=== PATIENT | male | born 1965 | race Hispanic/Latino ===

== ENCOUNTER → 2020-06-30 | Outpatient (CLI) | payer OTHER | END | disposition home or self-care (01) | LOC: RAH 14:11 | PROVIDERS: ATTEND Nurse Practitioner Adult Health | DX: Z13.6 Encounter for screening for cardiovascular disorders (principal) | CPT/HCPCS: 75571 ==

== ENCOUNTER 2020-10-12 09:15 | Inpatient (IN) | payer OTHER ==
[~2020-10-12] VITALS: Ht 175.3 cm; Wt 88.5 kg
[2020-10-12 09:49] LABS: BASOPHILS % (AUTO) 0.2 % (0.0-5.0); EOSINOPHILS % (AUTO) 1.5 % (0.0-8.0); HEMATOCRIT 46.9 % (42-54); LYMPHOCYTES % (AUTO) 10.2 % (21.0-51.0); MEAN CORPUSCULAR HEMOGLOBIN 29.7 pg (27.0-33.0); MEAN CORPUSCULAR HGB CONC 34.3 g/dL (32.0-36.0); MEAN CORPUSCULAR VOLUME 86.4 fL (79-99); MONOCYTES % (AUTO) 10.2 % (3.0-13.0); NEUTROPHILS % (AUTO) 77.7 % (40.0-77.0); PLATELET COUNT (AUTO) 212 K/uL (130-400); RED BLOOD CELL COUNT(AUTO) 5.43 MIL/uL (4.50-6.20); RED CELL DISTRIBUTION WIDTH 11.7 % (11.0-15.5); WHITE BLOOD COUNT (AUTO) 6.6 K/uL (4.8-10.8)
[2020-10-12 10:05] LABS: APPEARANCE,URINE Clear (CLEAR); BILIRUBIN,URINE Negative (NEGATIVE); COLOR,URINE Yellow (YELLOW); GLUCOSE, URINE (UA) Negative (NEGATIVE); KETONES,URINE >=80 mg/dL (NEGATIVE); LEUKOCYTE ESTERASE ,URINE Negative (NEGATIVE); NITRATE,URINE Negative (NEGATIVE); OCCULT BLOOD,URINE Negative (NEGATIVE); PROTEIN,URINE Trace mg/dL (NEGATIVE); UROBILINOGEN,URINE 0.2 mg/dL (0.2-1.0)
[2020-10-12 10:05] LABS: POTASSIUM 3.4 mmol/L (3.5-5.1)
[2020-10-12] MEDS ORDERED: SODIUM CHLORIDE 0.9% 1000ML 1,000 ML IV ONE ×2 (10:06→17:02)
[2020-10-12] MEDS ORDERED: FENTANYL CITRATE PF 50 MCG/1 ML 2ML VIAL ONE (10:06)
[2020-10-12] MEDS ORDERED: ONDANSETRON HCL 4 MG/2 ML VIAL ONE ×2 (10:06→17:02)
[2020-10-12 10:10] LABS: BILIRUBIN,TOTAL 0.5 mg/dL (0.2-1.0); TOTAL PROTEIN, SERUM 8.8 g/dL (6.0-8.3)
[2020-10-12 10:18] LABS: BACTERIA,URINE Few /HPF (None Seen); RBC,URINE 0-1 /HPF (0-1); WBC,URINE 0-1 /HPF (0-1)
[2020-10-12] MEDS ORDERED: KETOROLAC TROMETHAMINE 30MG/ML ONE (11:48)
[2020-10-12] MEDS ORDERED: ONDANSETRON HCL 4 MG/2 ML VIAL IV PRN (15:45)
[2020-10-12] MEDS: SODIUM CHLORIDE 0.9% 1000ML 1,000 ML IV SCH (15:45)
[2020-10-12] MEDS ORDERED: ACETAMINOPHEN 325 MG TAB PO PRN ×2 (15:45)
[2020-10-12] MEDS ORDERED: GADODIAMIDE 10 MMOL/20 ML VIAL IV ONE (16:04)
[2020-10-12] MEDS ORDERED: ZOSYN 3.375GM+NS 50ML 50 ML IV ONE (20:11)
[2020-10-12] MEDS ORDERED: FAMOTIDINE/PF 20 MG/2 ML VIAL IV ONE (20:12)
[2020-10-12] MEDS: FAMOTIDINE/PF 20 MG/2 ML VIAL IV SCH (21:00)
[2020-10-12] MEDS: ZOSYN 3.375GM+NS 50ML 50 ML IV SCH (21:00)
[2020-10-12] MEDS: LABETALOL HCL 5 MG/ML 20ML VIAL IV SCH (23:15)
[2020-10-12] MEDS ORDERED: POTASSIUM CHLORIDE 10MEQ/100ML 100 ML IV PRN (23:15)
[2020-10-12] MEDS ORDERED: LIDOCAINE HCL-MPF 1% 2ML VIAL IV PRN (23:15)
[2020-10-12] MEDS ORDERED: POTASSIUM CHLORIDE 10% ELIXIR 20 MEQ/15 ML UDCUP PO PRN (23:15)
[2020-10-12] MEDS ORDERED: POTASSIUM CHLORIDE 20 MEQ ERTAB PO PRN (23:15)
[2020-10-13] MEDS: SODIUM CHLORIDE 0.9% 1000ML 1,000 ML IV SCH ×3 (01:45→21:58)
[2020-10-13] MEDS ORDERED: ZOSYN 3.375GM+NS 50ML 50 ML IV ONE ×2 (04:55→12:14)
[2020-10-13] MEDS: ZOSYN 3.375GM+NS 50ML 50 ML IV SCH ×3 (05:00→21:58)
[2020-10-13 05:15] LABS: BASOPHILS % (AUTO) 0.3 % (0.0-5.0); EOSINOPHILS % (AUTO) 0.5 % (0.0-8.0); HEMATOCRIT 41.2 % (42-54); MEAN CORPUSCULAR HEMOGLOBIN 30.1 pg (27.0-33.0); MEAN CORPUSCULAR VOLUME 86.2 fL (79-99); MONOCYTES % (AUTO) 13.1 % (3.0-13.0); NEUTROPHILS % (AUTO) 68.8 % (40.0-77.0); PLATELET COUNT (AUTO) 199 K/uL (130-400); RED BLOOD CELL COUNT(AUTO) 4.78 MIL/uL (4.50-6.20); RED CELL DISTRIBUTION WIDTH 11.8 % (11.0-15.5); WHITE BLOOD COUNT (AUTO) 6.4 K/uL (4.8-10.8)
[2020-10-13 05:39] LABS: BILIRUBIN,TOTAL 0.5 mg/dL (0.2-1.0); POTASSIUM 3.8 mmol/L (3.5-5.1); TOTAL PROTEIN, SERUM 7.2 g/dL (6.0-8.3)
[2020-10-13] MEDS ORDERED: FAMOTIDINE/PF 20 MG/2 ML VIAL IV ONE (08:59)
[2020-10-13] MEDS: FAMOTIDINE/PF 20 MG/2 ML VIAL IV SCH ×2 (09:00→21:58)
[2020-10-13] MEDS ORDERED: ACETAMINOPHEN 325 MG TAB ONE (09:09)
[2020-10-13] MEDS ORDERED: IOHEXOL-350 75 ML VIAL IV ONE (12:44)
[2020-10-13 17:50] VITALS: BP 140/72
[2020-10-13 20:16] VITALS: BP 134/84
[2020-10-13] MEDS: LABETALOL HCL 5 MG/ML 20ML VIAL IV SCH (23:05)
[2020-10-13 23:17] VITALS: BP 129/86
[2020-10-14] VITALS (26 sets, daily range): BP systolic 107–146; BP diastolic 65–99
[2020-10-14] MEDS: METRONIDAZOLE 500MG/100ML BAG 100 ML IVPB SCH ×3 (05:30→21:03)
[2020-10-14 05:42] LABS: BASOPHILS % (AUTO) 0.3 % (0.0-5.0); HEMATOCRIT 39.7 % (42-54); LYMPHOCYTES % (AUTO) 20.1 % (21.0-51.0); MEAN CORPUSCULAR HEMOGLOBIN 29.5 pg (27.0-33.0); MEAN CORPUSCULAR HGB CONC 33.5 g/dL (32.0-36.0); MONOCYTES % (AUTO) 11.5 % (3.0-13.0); NEUTROPHILS % (AUTO) 65.8 % (40.0-77.0); PLATELET COUNT (AUTO) 217 K/uL (130-400); RED BLOOD CELL COUNT(AUTO) 4.51 MIL/uL (4.50-6.20); RED CELL DISTRIBUTION WIDTH 11.9 % (11.0-15.5); WHITE BLOOD COUNT (AUTO) 6.9 K/uL (4.8-10.8)
[2020-10-14 05:57] LABS: ALBUMIN 2.7 g/dL (3.5-5.0); BILIRUBIN,TOTAL 0.5 mg/dL (0.2-1.0); CREATININE 1.1 mg/dL (0.5-1.5); POTASSIUM 3.7 mmol/L (3.5-5.1); TOTAL PROTEIN, SERUM 6.8 g/dL (6.0-8.3)
[2020-10-14] MEDS: ZOSYN 3.375GM+NS 50ML 50 ML IV SCH ×3 (06:36→21:03)
[2020-10-14] MEDS: SODIUM CHLORIDE 0.9% 1000ML 1,000 ML IV SCH ×2 (07:45→17:45)
[2020-10-14] MEDS: FAMOTIDINE/PF 20 MG/2 ML VIAL IV SCH ×2 (09:44→21:03)
[2020-10-14] MEDS ORDERED: SUCCINYLCHOLINE CHLORIDE 20 MG/ML 10 ML VIAL ONE (15:55)
[2020-10-14] MEDS ORDERED: LIDOCAINE PF 2% 5ML ABBOJECT ONE (15:55)
[2020-10-14] MEDS ORDERED: PROPOFOL 10 MG/ML 20ML VIAL IV ONE (15:56)
[2020-10-14] MEDS ORDERED: NEOSTIGMINE 5MG/5ML SYR IV ONE (15:56)
[2020-10-14] MEDS ORDERED: MIDAZOLAM HCL 1 MG/ML 2ML VIAL ONE (15:56)
[2020-10-14] MEDS ORDERED: DEXAMETHASONE SOD PHOSPHATE 10MG/ML 1ML VIAL ONE (15:56)
[2020-10-14] MEDS ORDERED: GLYCOPYRROLATE 1 MG/5 ML SYRINGE ONE (15:56)
[2020-10-14] MEDS ORDERED: ROCURONIUM 10MG/1ML SYR 10 MG/ML ML ONE (15:56)
[2020-10-14] MEDS ORDERED: ONDANSETRON HCL 4 MG/2 ML VIAL ONE (15:56)
[2020-10-14] MEDS ORDERED: FENTANYL CITRATE PF 50 MCG/1 ML 2ML VIAL ONE ×2 (15:57→18:24)
[2020-10-14] MEDS ORDERED: MEPERIDINE-PF 25 MG/ML SYG ONE ×2 (15:58→19:00)
[2020-10-14] MEDS ORDERED: BUPIVACAINE/PF 0.25% 30ML VIAL IJ ONE (16:39)
[2020-10-14] MEDS ORDERED: LIDOCAINE HCL 1% 20 ML VIAL ONE (17:29)
[2020-10-14] MEDS ORDERED: LISI40TA9 PO (18:32)
[2020-10-14] MEDS: LABETALOL HCL 5 MG/ML 20ML VIAL IV SCH (21:06)
[2020-10-14] MEDS: MORPHINE SULFATE 2 MG/ML 1ML SYG IV PRN ×2 (22:00)
[2020-10-15] VITALS: BP 125/79
[2020-10-15 00:30] VITALS: BP 143/83
[2020-10-15] MEDS: MORPHINE SULFATE 2 MG/ML 1ML SYG IV PRN (01:29)
[2020-10-15 01:30] VITALS: BP 138/86
[2020-10-15 03:44] LABS: HEMATOCRIT 38.5 % (42-54); LYMPHOCYTES % (AUTO) 7.9 % (21.0-51.0); MEAN CORPUSCULAR HEMOGLOBIN 29.7 pg (27.0-33.0); MEAN CORPUSCULAR VOLUME 87.3 fL (79-99); MONOCYTES % (AUTO) 1.9 % (3.0-13.0); NEUTROPHILS % (AUTO) 89.7 % (40.0-77.0); PLATELET COUNT (AUTO) 265 K/uL (130-400); RED BLOOD CELL COUNT(AUTO) 4.41 MIL/uL (4.50-6.20); RED CELL DISTRIBUTION WIDTH 11.7 % (11.0-15.5); WHITE BLOOD COUNT (AUTO) 3.7 K/uL (4.8-10.8)
[2020-10-15] MEDS: SODIUM CHLORIDE 0.9% 1000ML 1,000 ML IV SCH (03:45)
[2020-10-15 03:57] VITALS: BP 131/82
[2020-10-15 04:04] LABS: ALBUMIN 2.6 g/dL (3.5-5.0); BILIRUBIN,TOTAL 0.5 mg/dL (0.2-1.0); CREATININE 0.9 mg/dL (0.5-1.5); TOTAL PROTEIN, SERUM 6.8 g/dL (6.0-8.3)
[2020-10-15] MEDS: METRONIDAZOLE 500MG/100ML BAG 100 ML IVPB SCH ×2 (04:26→14:00)
[2020-10-15] MEDS: ZOSYN 3.375GM+NS 50ML 50 ML IV SCH ×2 (04:26→13:00)
[2020-10-15 08:47] VITALS: BP 123/85
[2020-10-15] MEDS: FAMOTIDINE/PF 20 MG/2 ML VIAL IV SCH (09:30)
[2020-10-15 12:09] VITALS: BP 120/75
[2020-10-15] MEDS ORDERED: METRONIDAZOLE 500 MG TABLET PO SCH (15:15)
[2020-10-15] MEDS ORDERED: CEPHALEXIN 500 MG CAPSULE PO SCH (15:15)
== END 2020-10-15 16:00 | disposition home or self-care (01) | DRG 418 ==
LOC: EDH 09:15 → EDHIP 09:16 → 3BH 10-13 17:23
PROVIDERS: ADMIT Internal Medicine; ATTEND Internal Medicine
PROC: 0FT44ZZ Resection of Gallbladder, Percutaneous Endoscopic Approach (ICD-10-PCS; principal; 2020-10-14 17:15)
DX: K80.00 Calculus of gallbladder with acute cholecystitis without obstruction (principal); E87.1 Hypo-osmolality and hyponatremia; I10 Essential (primary) hypertension; K76.0 Fatty (change of) liver, not elsewhere classified; K82.8 Other specified diseases of gallbladder; N28.1 Cyst of kidney, acquired
CPT/HCPCS: 36415; 74177; 74183; 76705; 78227; 80053; 81001; 82150; 82550; 83605; 83690; 84145; 84484; 85025; 87040; 93005; A9537; A9579; G0378; J0330; J1100; J1885; J2001; J2175; J2250; J2405; J2543; J2704; J2710; J3010; J3490; J7030; Q9967

== ENCOUNTER 2020-10-17 06:21 | Emergency (ER) | payer SELFPAY ==
[~2020-10-17 06:21] MED LIST: LISI40TA9 PO
[2020-10-17] MEDS ORDERED: PROCHLORPERAZINE EDISYLATE 10 MG/2 ML VIAL ONE (07:06)
[2020-10-17] MEDS ORDERED: FAMOTIDINE/PF 20 MG/2 ML VIAL IV ONE (07:06)
[2020-10-17] MEDS ORDERED: DiphenhydrAMINE HCL 50 MG/ML VIAL ONE (07:06)
[2020-10-17 07:07] LABS: BASOPHILS % (AUTO) 0.3 % (0.0-5.0); EOSINOPHILS % (AUTO) 2.6 % (0.0-8.0); HEMATOCRIT 42.5 % (42-54); MEAN CORPUSCULAR HEMOGLOBIN 29.6 pg (27.0-33.0); MEAN CORPUSCULAR HGB CONC 34.1 g/dL (32.0-36.0); MEAN CORPUSCULAR VOLUME 86.7 fL (79-99); MONOCYTES % (AUTO) 6.3 % (3.0-13.0); NEUTROPHILS % (AUTO) 67.2 % (40.0-77.0); PLATELET COUNT (AUTO) 371 K/uL (130-400); RED CELL DISTRIBUTION WIDTH 11.8 % (11.0-15.5); WHITE BLOOD COUNT (AUTO) 6.6 K/uL (4.8-10.8)
[2020-10-17 07:23] LABS: BILIRUBIN,TOTAL 0.5 mg/dL (0.2-1.0); POTASSIUM 3.1 mmol/L (3.5-5.1); TOTAL PROTEIN, SERUM 7.4 g/dL (6.0-8.3)
[2020-10-17 08:06] LABS: APPEARANCE,URINE Clear (CLEAR); BILIRUBIN,URINE Negative (NEGATIVE); COLOR,URINE Yellow (YELLOW); GLUCOSE, URINE (UA) Negative (NEGATIVE); KETONES,URINE 15 mg/dL (NEGATIVE); LEUKOCYTE ESTERASE ,URINE Negative (NEGATIVE); NITRATE,URINE Negative (NEGATIVE); OCCULT BLOOD,URINE Negative (NEGATIVE); PROTEIN,URINE Negative (NEGATIVE); UROBILINOGEN,URINE 0.2 mg/dL (0.2-1.0)
== END 2020-10-17 09:12 | disposition home or self-care (01) ==
LOC: EDH 06:21
DX: G89.18 Other acute postprocedural pain (principal); R10.9 Unspecified abdominal pain; K30 Functional dyspepsia; I10 Essential (primary) hypertension; Z90.49 Acquired absence of other specified parts of digestive tract
CPT/HCPCS: 36415; 80053; 81003; 83690; 84484; 85025; 96374; 96375; 99284; J0780; J1200; J3490